=== PATIENT | female | born 1965 | race Two or more races ===

== ENCOUNTER → 2019-09-08 | Outpatient (CLI) | payer OTHER, BC ==
[~2019-09-08] MED LIST: OMNIPAQUE 350 MG/ML, 150 ML BOTTLE ONE
== END | disposition home or self-care (01) ==
LOC: RAD 14:48
PROVIDERS: ATTEND Nurse Practitioner Family
DX: R31.9 Hematuria, unspecified (principal); N85.2 Hypertrophy of uterus; D25.9 Leiomyoma of uterus, unspecified; M51.36 Other intervertebral disc degeneration, lumbar region; M47.816 Spondylosis without myelopathy or radiculopathy, lumbar region
CPT/HCPCS: 74178; Q9967

== ENCOUNTER → 2019-12-19 | Outpatient (CLI) | payer OTHER, BC ==
[~2019-12-19] MED LIST changes: +NONE PER PT; -OMNIPAQUE 350 MG/ML, 150 ML BOTTLE ONE
[2019-12-19 11:11] LABS: BASOPHILS % (AUTO) 1 % (0-1); EOSINOPHILS % (AUTO) 3 % (1-7); LYMPHOCYTES % (AUTO) 24 % (22-44); MEAN CORPUSCULAR HGB CONC 33.3 g/dL (32.4-35.8); MEAN PLATELET VOLUME 8.4 fL (7.4-10.4); MONOCYTES % (AUTO) 7 % (2-9); NEUTROPHILS % (AUTO) 66 % (42-75); PLATELET COUNT 304 x10^3/uL (130-400); RED BLOOD COUNT 4.62 x10^6/uL (3.82-5.3); RED CELL DISTRIBUTION WIDTH 12.9 % (9.6-15.2)
[2019-12-19 11:13] LABS: MD NO
[2019-12-19 11:21] LABS: CHLORIDE 107 mmol/L (98-107)
[2019-12-19 11:25] LABS: ALANINE AMINOTRANSFERASE 11 U/L (12-78); ALBUMIN 3.7 g/dL (3.4-5.0); ALKALINE PHOSPHATASE 50 U/L (45-117); ANION GAP 6 mmol/L (5-15); BILIRUBIN,TOTAL 0.3 mg/dL (0.2-1.0); CALCIUM 8.9 mg/dL (8.5-10.1); CREATININE 0.61 mg/dL (0.55-1.02); TOTAL PROTEIN 7.6 g/dL (6.4-8.2)
[2019-12-19 11:52] LABS: MICROSCOPIC AUTO
== END | disposition home or self-care (01) ==
LOC: STAR 10:16
PROVIDERS: ATTEND Obstetrics & Gynecology Gynecology
DX: Z01.812 Encounter for preprocedural laboratory examination (principal); R10.2 Pelvic and perineal pain; M54.9 Dorsalgia, unspecified; N93.9 Abnormal uterine and vaginal bleeding, unspecified; Z20.828 Contact with and (suspected) exposure to other viral communicable diseases
CPT/HCPCS: 36415; 80053; 81001; 85025; 87635

== ENCOUNTER 2019-12-23 10:22 | Day surgery (SDC) | payer OTHER, BC ==
[~2019-12-23] VITALS: Ht 152.4 cm; Wt 49.0 kg
[2019-12-23] MEDS ORDERED: CHLORHEXIDINE 15 ML UDC MM ONE (10:42)
[2019-12-23] MEDS ORDERED: CHLORHEXIDINE 15 ML UDC ONE (10:49)
[2019-12-23] MEDS ORDERED: LACTATED RINGERS 1,000 ML IV SCH (11:00)
[2019-12-23 11:19] LABS: HCG UR SG 1.009 (1.003-1.030)
[2019-12-23] MEDS ORDERED: FLUORESCEIN SODIUM 500 MG/5 ML ONE (11:20)
[2019-12-23] MEDS ORDERED: SCOPOLAMINE 1MG PATCH TD ONE (12:21)
[2019-12-23] MEDS ORDERED: ROCURONIUM 10 MG/ML,10ML ONE (12:29)
[2019-12-23] MEDS ORDERED: PROPOFOL 10 MG/ML, 20ML ONE (12:29)
[2019-12-23] MEDS ORDERED: DEXAMETHASONE 4 MG/ML, 1ML ONE (12:29)
[2019-12-23] MEDS ORDERED: LABETALOL 5MG/ML, 20ML ONE (12:29)
[2019-12-23] MEDS ORDERED: LIDOCAINE PF 2%, 5ML ONE (12:29)
[2019-12-23] MEDS ORDERED: KETOROLAC 30 MG/1 ML ONE (12:29)
[2019-12-23] MEDS ORDERED: NEOSTIGMINE 1 MG/ML, 10ML ONE (12:29)
[2019-12-23] MEDS ORDERED: CEFAZOLIN 1,000 MG ONE (12:29)
[2019-12-23] MEDS ORDERED: ALBUTEROL/IPRATROPIUM 2.5MG/0.5MG, 3 ML NPPB PRN (14:00)
[2019-12-23] MEDS ORDERED: DIAZEPAM 5 MG/ML, 2ML IVPush PRN (14:00)
[2019-12-23] MEDS ORDERED: LABETALOL 5MG/ML, 20ML IV PRN (14:00)
[2019-12-23] MEDS ORDERED: OXYcodone 5 MG/5 ML ORAL.SOL UDC PO PRN (14:00)
[2019-12-23] MEDS ORDERED: hydrALAzine 20 MG/ML, 1ML IV PRN (14:00)
[2019-12-23] MEDS ORDERED: KETOROLAC 30 MG/1 ML IVPush PRN (14:00)
[2019-12-23] MEDS ORDERED: MEPERIDINE/PF 25MG/0.5ML IVPush PRN (14:00)
[2019-12-23] MEDS ORDERED: ACETAMINOPHEN 325 MG TABLET PO PRN (14:00)
[2019-12-23] MEDS ORDERED: MIDAZOLAM 1 MG/ML, 2ML IV PRN (14:00)
[2019-12-23] MEDS ORDERED: HYDROcodone/APAP 7.5-325MG/15ML UDC PO PRN (14:00)
[2019-12-23] MEDS ORDERED: METOCLOPRAMIDE 5 MG/ML, 2ML IVPush PRN (14:00)
[2019-12-23] MEDS ORDERED: METHOCARBAMOL 1,000 MG in DEXTROSE 5% 100 ML IV PRN (14:00)
[2019-12-23] MEDS ORDERED: EPHEDRINE 50 MG/ML, 1ML IM PRN (14:00)
[2019-12-23] MEDS ORDERED: HALOPERIDOL 5 MG/ML IV PRN (14:00)
[2019-12-23] MEDS ORDERED: LORazepam 2 MG/ML, 1ML IVPush PRN (14:00)
[2019-12-23] MEDS ORDERED: DIPHENHYDRAMINE 50 MG/ML, 1ML IVPush PRN (14:00)
[2019-12-23] MEDS ORDERED: ONDANSETRON 2MG/ML, 2ML IVPush PRN (14:00)
[2019-12-23] MEDS ORDERED: EPHEDRINE 50 MG/ML, 1ML IVPush PRN (14:00)
[2019-12-23] MEDS ORDERED: FENTANYL PF 100 MCG/2ML ONE (14:58)
[2019-12-23] MEDS ORDERED: HYDROmorphone 1 MG/ML, 1ML INJ ONE (14:58)
[2019-12-23] MEDS ORDERED: OXYcodone 5 MG/5 ML ORAL.SOL UDC ONE (14:59)
[2019-12-23] MEDS: FENTANYL PF 100 MCG/2ML IV PRN ×4 (14:59→15:21)
[2019-12-23] MEDS: HYDROmorphone 1 MG/ML, 1ML INJ IVPush PRN ×2 (15:29→15:44)
== END 2019-12-23 18:40 | disposition home or self-care (01) ==
LOC: OUT 10:22
PROVIDERS: ATTEND Obstetrics & Gynecology Gynecology
DX: N93.8 Other specified abnormal uterine and vaginal bleeding (principal); D25.9 Leiomyoma of uterus, unspecified; N94.5 Secondary dysmenorrhea; Z88.2 Allergy status to sulfonamides; Z88.0 Allergy status to penicillin; Z90.49 Acquired absence of other specified parts of digestive tract; Z98.890 Other specified postprocedural states; Z72.89 Other problems related to lifestyle; Z83.3 Family history of diabetes mellitus; Z79.899 Other long term (current) drug therapy; Z88.1 Allergy status to other antibiotic agents
CPT/HCPCS: 36415; 58573; 81025; 86850; 86900; 88307; J0690; J1100; J1170; J1885; J2250; J2405; J2704; J2710; J2800; J3010; J7120